=== PATIENT | female | born 1960 | race Caucasian/White ===

== ENCOUNTER → 2018-04-01 | Outpatient (CLI) | payer MEDICARE, OTHER ==
--- NOTE | 2018-04-01 09:49 | FL ---
MODIFIED SWALLOW / DEGLUTITION STUDY EXAMINATION TYPE: FL barium swallow w video DATE OF EXAM: 04/01/2018 CLINICAL HISTORY: 58-year-old female dysphasia, trouble swallowing solids. Patient with cerebral pals y. TECHNIQUE: Deglutition study is performed utilizing thin liquid barium, honey and nectar thick liqui d barium, barium thick applesauce, and barium coated cracker. Total fluoroscopy time: 1 minute 25 seconds. Total images: None. Real-time fluoroscopy support was provided to speech pathology. COMPARISON: None. FINDINGS: The oral and pharyngeal phases show satisfactory initiation and propagation with all modalities teste d. Normal mastication is seen with solid modalities tested. There is transient deep penetration wit h liquids. Mild vallecular residuals are also present. No aspiration. IMPRESSION: Mild vallecular residuals and transient penetration with thin liquids. No aspiration. Please refer to speech therapist notes for further details if necessary.
== END ==
LOC: RADFLWHC 08:42
PROVIDERS: ATTEND Internal Medicine
DX: R13.10 Dysphagia, unspecified (principal)
CPT/HCPCS: 74230

== ENCOUNTER → 2024-06-15 | Outpatient (CLI) | payer MEDICARE, OTHER ==
[2024-06-15 13:29] VITALS: BP 150/84; PULSE 94; RESP 16; TEMP 97.7
--- NOTE | 2024-06-15 14:39 | P.SLEEP ---
History of Present Illness DATE: 06/15/2024 CONSULTATION/NEW PATIENT EVALUATION HISTORY OF PRESENT ILLNESS/SLEEP-WAKE EVALUATION: 64-year-old lady had been evaluated in the sleep center for possible obstructive sleep apnea hypopnea syndrome. Patient was brought for consultation for from [facility]. SLEEP SCHEDULE: Usually sleep schedule from 6:30 PM to 6 AM 7 days a week. FALLING ASLEEP: Usually no significant problems with falling asleep. DURING SLEEP: Patient snores and occasionally wakes up from sleep. No history of hypnogogical hallucinations, sleep paralysis, or cataplexy. DURING THE DAY/WAKE STATE: In the morning patient wake up tired, has episodes of anxiety.. [place] sleepiness scale is 3. Patient does not take any naps. PAST MEDICAL HISTORY: Cerebral palsy, osteoarthritis, hyperlipidemia, acid reflux, generalized muscle weakness, ataxia, history of epilepsy, legally blind. PAST SURGICAL HISTORY: Please see below. MEDICATIONS: Please see below. SOCIAL HISTORY: Please see below. FAMILY HISTORY: Hypertension, heart problems, diabetes. REVIEW OF SYSTEMS: Snoring, awakenings from sleep. No fevers. No double vision. No recent chest pain. No shortness of breath. No abdominal pain. No bleeding episodes. No blood in urine. . PHYSICAL EXAMINATION: GENERAL: A pleasant patient without any distress on wheelchair. VITAL SIGNS: Please see below, weight 149.9 pounds. HEENT: Evaluation of oropharynx showed tongue protrudes midline, low position of soft palate Mallampati 4. NECK: Supple. No JVD. Thyroid is not palpable. 16.5 inches in circumference. LUNGS: Clear to percussion and to auscultation. Good air exchange. No wheezing or rhonchi. HEART: S1, S2 regular. No murmurs, gallops or rubs. ABDOMEN: Soft and nontender. Bowel sounds are present. No organomegaly appreciated. EXTREMITIES: No clubbing or cyanosis. RESIDENTIAL PROGRAM COORDINATOR: Awake, alert, and oriented x3. Patient is on wheelchair. Legally blind. ASSESSMENT: 1. Snoring, awakenings from sleep, extremely low position of soft palate Mallampati 4, wide neck 16.5 inches in circumference. Obstructive sleep apnea hypopnea syndrome. 2. Cerebral palsy. 3. Legally blind. 4. Osteoarthritis. 5. Generalized muscle weakness. 6 . Ataxia. 7. History of epilepsy. PLAN: 1. Home sleep apnea test for evaluation of patient's breathing during sleep. 2. Following plan after reading sleep study. 3. Preferable position during sleep on the side. 4. Watching weight. 5. Sleep hygiene with regular sleep time for at least 7.5-8 hours. Thank you very much for referring this patient for consultation. Sincerely, Barrett Peña MD, PhD, FAASM. Diplomat of [place] [employer], Sleep Medicine Board by [place] [employer] [place] [employer] [facility] [place] cc: Ashlee Becerra DO Past Medical History Past Medical History: Seizure Disorder Additional Past Medical History / Comment(s): Developmental disability, unable to walk, needs wheelchair, bedpan? History of Any Multi-Drug Resistant Organisms: None Reported Past Surgical History: Orthopedic Surgery Past Anesthesia/Blood Transfusion Reactions: No Reported Reaction Past Psychological History: No Psychological Hx Reported Smoking Status: Never smoker Past Alcohol Use History: None Reported Past Drug Use History: None Reported - Past Family History Father Family Medical History: Asthma Additional Family Medical History / Comment(s): Emphysema Mother Family Medical History: Cancer, Coronary Artery Disease (CAD), Hypertension, Osteoarthritis (OA) Additional Family Medical History / Comment(s): sinus headaches Brother(s) Family Medical History: Asthma, Diabetes Mellitus, Sleep Apnea/CPAP/BIPAP, Thyroid Disorder Additional Family Medical History / Comment(s): snoring Medications and Allergies Home Medications Medication Instructions Recorded Confirmed Type Cholecalciferol [Vitamin D3] 1,000 units PO DAILY 07/21/16 07/21/16 History Loratadine [Claritin] 10 mg PO DAILY 07/21/16 07/21/16 History carBAMazepine [TEGretol] 200 mg PO TID 07/21/16 07/21/16 History raNITIdine HCL [Zantac] 150 mg PO DAILY 07/21/16 07/21/16 History Allergies Allergy/AdvReac Type Severity Reaction Status Date / Time No Known Allergies Allergy Verified 07/21/16 13:44 Physical Exam Vitals: Vital Signs Temp Pulse Resp BP Pulse Ox 06/15/24 13:28 97.7 F 94 16 150/84 100 Intake and Output 06/14/24 06/15/24 06/15/24 22:59 06:59 14:59 Other: Weight 67.585 kg Sleep Note - Sleep Data ESS Total: 3 - Sleep Note Sleep Note: Temperature: 97.7 F Pulse Rate: 94 Respiratory Rate: 16 Blood Pressure: 150/84 SpO2: 100 Height: 5 ft 6 in Weight: 67.585 kg BMI: Neck Circumference: 16.5
== END ==
LOC: 3 N SLEEP 13:09
PROVIDERS: ATTEND Internal Medicine
CPT/HCPCS: 99211

== ENCOUNTER → 2024-07-03 | Outpatient (CLI) | payer MEDICARE, OTHER ==
--- NOTE | 2024-07-05 10:03 | P.PCN ---
Description of Procedure: CLINICAL: A home sleep apnea test has been done for confirmation of possible obstructive sleep apnea-hypopnea syndrome. DESCRIPTION OF PROCEDURE: RESULTS: Recording time was okay hours 10.48 minutes. Evaluation time was 1 hours 57 minutes. Evaluation time is not sufficient for making conclusion about results of the test. Raw data of sleep recording has been reviewed and is adequate. Respiratory channel showed 68 apneas and 29 hypopneas. Apnea-hypopnea index was 49.4 per hour. Pulse rate in the range between minimum 44, maximum 159, average 77 by computer calculation. Lowest desaturation was 78%. IMPRESSION: 1. Evaluation time is less than 2 hours, which is not allowed to me conclusion about results of the test, although severe abnormalities of respiration during evaluation time. Please see other impressions from consultation. PLAN: 1. Polysomnography for evaluation of patient breathing during the sleep. 2. Following plan after reading sleep study. 3. Watching and losing weight. 4. Sleep hygiene with regular time in bed for at least 8 hours[address] 5[address] Patient does not drive. Thank you very much for allowing me to participate in the management of your patient. Sincerely, Barrett Peña MD, PhD, FAASM Diplomat of [place] [employer] Sleep Medicine Board of [place] [employer] [facility] [place] cc: Ashlee Salvador DO
== END ==
LOC: 3 N SLEEP 13:00
PROVIDERS: ATTEND Internal Medicine
DX: R06.89 Other abnormalities of breathing (principal)

== ENCOUNTER → 2024-08-31 | Outpatient (CLI) | payer MEDICARE, OTHER ==
--- NOTE | 2024-09-07 11:08 | P.PCN ---
Description of Procedure: CLINICAL: A home sleep apnea test has been done for confirmation of possible obstructive sleep apnea-hypopnea syndrome. DESCRIPTION OF PROCEDURE: RESULTS: Recording time was 11 hours 21 minutes. Evaluation time was 10 hours 58 minutes. Evaluation time is sufficient for making conclusion about results of the test. Raw data of sleep recording has been reviewed and is adequate. Respiratory channel showed 86 apneas and 221 hypopneas. Apnea-hypopnea index was 27.9 per hour. Pulse rate in the range between minimum 55, maximum 86, average 71 by computer calculation. Lowest desaturation was 55%. IMPRESSION: 1. Moderate close to Severe Obstructive Sleep Apnea Hypopnea Syndrome. Please see other impressions from consultation. PLAN: 1. The patient should have PAP titration for correction of respiratory abnormallities during sleep. 2. Sleep hygiene with regular time in bed for at least 8 hours. 3. Watching weight. Thank you very much for allowing me to participate in the management of your patient. Sincerely, Barrett Peña MD, PhD, FAASM Diplomat of [place] [employer] Sleep Medicine Board of [place] [employer] [place] [employer] Agent of [facility] [place] cc: Ashlee Salvador DO
== END ==
LOC: 3 N SLEEP 17:00
PROVIDERS: ATTEND Internal Medicine
DX: G47.33 Obstructive sleep apnea (adult) (pediatric) (principal)

== ENCOUNTER → 2024-11-30 | Outpatient (CLI) | payer MEDICARE, OTHER ==
[2024-11-30 14:55] VITALS: BP 132/71; PULSE 86; RESP 16; TEMP 98.6
--- NOTE | 2024-11-30 16:00 | P.PROGSL ---
Subjective DATE: 11/30/2024 FOLLOW UP VISIT. Patient with obstructive sleep apnea hypopnea syndrome return to sleep center for follow-up visit. Recently patient had sleep study which documented obstructive sleep apnea hypopnea syndrome. Patient was initiated on PAP therapy and today is first visit after treatment was started. Patient was able to use PAP equipment every night for the whole night. The patient does not have significant problems with the mask, PAP pressure and humidification. [place] Sleepiness Scale is 6, which is normal I checked information from PAP unit. PAP unit pressure 5-14, average 11.9 cm H2O. Usage is 100% for more then 4 hours, average 11.7 hours per night. Leak is significantly increased to 68 l/m, which is in acceptable range. Apnea Hypopnea Index is 5.7, which is borderline. MEDICATIONS: Please see below During physical exam: GENERAL: A pleasant blind patient without any distress on wheelchair. VITAL SIGNS: Please see below, weight 159 pounds. HEENT: PERRLA, EOMI.low position of soft palate, Mallapati 4 . NECK: Supple. No JVD. LUNGS: Clear to percussion and to auscultation. Good air exchange. No wheezing or rhonchi. HEART: S1, S2 regular. ABDOMEN: Soft and nontender.[] EXTREMITIES: No clubbing or cyanosis. TURNAROUND PLANNER: Awake, alert, and oriented x3. No focal deficit. Impressions: 1. Obstructive sleep apnea-hypopnea syndrome. Patient demonstrated great compliance with treatment, benefiting from treatment. 2. Cerebral palsy. 3. Legally blind. 4. Osteoarthritis. 5. Generalized muscle weakness. 6. Ataxia. 7. History of epilepsy. Plan: 1. Continue using PAP equipment every night for the whole night. 2. To change air filter at least 1-2 times per month. 3. PAP unit should stay lower then position of the head. 4. Advised patient to remove all remaining water from humidifier canister daily and make it dry after each usage. Refill canister with fresh distilled water before each usage. 5. Sleep hygiene with regular time in bed for at least 8 hours. 6. Precautions related to driving. No driving if feel any sleepiness. 7. I will maintain prescription for PAP supplies including mask, tube, filters. 8. Follow up visit in 8 months or earlier if patient has any problems. 9. Watching weight. Thank you very much for allowing me to participate in the management of your patient. Barrett Peña MD, PhD, FAASM. Diplomat of [place] [employer], Sleep Medicine Board by [place] [employer] Manager [facility] [place] Objective - Vital Signs Vital Signs: Vital Signs Temp 98.6 F 11/30/24 14:54 Pulse 86 11/30/24 14:54 Resp 16 11/30/24 14:54 BP 132/71 11/30/24 14:54 Pulse Ox 96 11/30/24 14:54 FiO2 Intake & Output 11/29/24 11/30/24 11/30/24 18:59 06:59 18:59 Weight 72.121 kg Home Medications: Home Medications Medication Instructions Recorded Confirmed Type Cholecalciferol [Vitamin D3] 1,000 units PO DAILY 07/21/16 07/21/16 History Loratadine [Claritin] 10 mg PO DAILY 07/21/16 07/21/16 History carBAMazepine [TEGretol] 200 mg PO TID 07/21/16 07/21/16 History raNITIdine HCL [Zantac] 150 mg PO DAILY 07/21/16 07/21/16 History
== END ==
LOC: 3 N SLEEP 14:27
PROVIDERS: ATTEND Internal Medicine
DX: G47.33 Obstructive sleep apnea (adult) (pediatric) (principal); G80.9 Cerebral palsy, unspecified; H54.8 Legal blindness, as defined in USA; M19.90 Unspecified osteoarthritis, unspecified site; M62.81 Muscle weakness (generalized); R27.0 Ataxia, unspecified; Z86.69 Personal history of other diseases of the nervous system and sense organs
CPT/HCPCS: 99212